=== PATIENT | female | born 1975 ===

== ENCOUNTER 2016-10-22 23:45 | Inpatient (IN) | payer MEDICAID ==
--- NOTE | 2016-10-23 00:14 | ED PDOC ---
HPI: Psych/Substance Abuse Time Seen by Provider: 10/23/16 00:06 Chief Complaint (Nursing): Psychiatric Evaluation Chief Complaint (Provider): pysch eval Additional Complaint(s): 41yo F in ED for eval of psychosis. was sent by [facility] [employer] for bizarre behavior. however pt uncooperative combative and came to ED with 4-point restraints . pt not talking in ED with very bizarre behaviors in ED Past Medical History Reviewed: Historical Data, Nursing Documentation, Vital Signs - Medical History PMH: No Chronic Diseases - Family History Family History: States: No Known Family Hx - Home Medications Home Medications: Ambulatory Orders Medication Instructions Recorded No Known Home Med 10/23/16 - Allergies Allergies/Adverse Reactions: Allergies Allergy/AdvReac Type Severity Reaction Status Date / Time "anesthesia" Allergy RASH Uncoded 10/22/16 23:51 Review of Systems ROS Statement: Except As Marked, All Systems Reviewed And Found Negative Review Of Systems: ROS cannot be obtained secondary to pt's inabilty to answer questions. (refuses to answer) Physical Exam - Reviewed Nursing Documentation Reviewed: Yes Vital Signs Reviewed: Yes - Physical Exam Appears: Positive for: Non-toxic (unkept), No Acute Distress Head Exam: Positive for: ATRAUMATIC, NORMAL INSPECTION, NORMOCEPHALIC Skin: Positive for: Normal Color, Warm, DRY Eye Exam: Positive for: EOMI, Normal appearance, PERRL ENT: Positive for: Normal ENT Inspection Cardiovascular/Chest: Positive for: Regular Rate, Rhythm Respiratory: Positive for: CNT, Normal Breath Sounds Gastrointestinal/Abdominal: Positive for: Normal Exam, Bowel Sounds, Soft Back: Positive for: Normal Inspection Extremity: Positive for: Normal ROM Neurologic/Psych: Positive for: Alert, Mood/Affect (very bizzare affect) - Laboratory Results Result Diagrams: 10/23/16 00:31 10/23/16 00:31 Urine POC: Negative Urine dip results: Negative for: Leukocyte Esterase, Blood, Nitrate, Ketones, Glucose, Bilirubin, Protein - ECG ECG Rhythm: Positive for: Normal QRS - Radiology X-Ray: Interpreted by Me X-Ray Interpretation: No Acute Disease - Progress ED Course And Treament: pt will require [facility] screening . will get cbc/cmp/utox/alcohol/UA/chest xray/ EKG. placed on 1:1 family came to ED -states that family member had similar presentation of of behavior and on CT scan of head discovered tumors. Pt family concerned of similar outcome for pt. therefore CT of head ordered. CT scna results: NAD. Medical Decision Making Medical Decision Making: Pt is medically cleared at this time for [facility] evaluation. ED OBSERVATION Date of observation admission: 10/23/16 Time of observation admission: 04:37 - Observation admission statement Patient is being placed in observation because:: pending [facility] screening for acute psychosis. CTof head: negative. - Goals of Observation Goals of observation are:: [facility] screening and disposition. - Progress Note Progress Note: 10/23/16 04:38 pt doing well, sleeping comfortably. Disposition - Clinical Impression Clinical Impression: Psychosis - Patient ED Disposition Is Patient to be Admitted: Transfer of Care - Disposition Disposition: Transfer of Care Disposition Time: 05:42 Condition: STABLE Patient Signed Over To: Bravo Gu ([facility] screeening)
[2016-10-23 00:31] LABS: BASO # 0.1 K/uL (0.0-0.2); BASO % 1.2 % (0.0-2.0); EOS # 0.5 K/uL (0.0-0.7); HEMOGLOBIN 13.2 g/dL (12.0-16.0); LYMPH # 2.1 K/uL (1.0-4.3); LYMPH % 24.5 % (20.0-40.0); MEAN CELL VOLUME 89.8 fl (81.0-99.0); MEAN CORPUSCULAR HEMOGLOBIN 30.1 pg (27.0-31.0); MEAN CORPUSCULAR HGB CONC 33.5 g/dL (33.0-37.0); MEAN PLATELET VOLUME 9.1 fl (7.2-11.7); MONO # 0.5 K/uL (0.0-0.8); MONO % 5.7 % (0.0-10.0); NEUT # 5.4 K/uL (1.8-7.0); NEUT % 62.6 % (50.0-75.0); RBC 4.38 Mil/uL (3.80-5.20); RED CELL DISTRIBUTION WIDTH 13.3 % (11.5-14.5); WHITE BLOOD COUNT 8.6 K/uL (4.8-10.8)
[2016-10-23 00:40] LABS: ALB/GLOB RATIO 1.6 (1.0-2.1); ALBUMIN 4.2 g/dL (3.5-5.0); ALT/SGPT 32 U/L (9-52); AST/SGOT 14 U/L (14-36); BLOOD UREA NITROGEN 13 mg/dl (7-17); GFR AFRICAN-AMERICAN > 60; GFR NON-AFRICAN AMERICAN > 60
[2016-10-23 01:50] LABS: BARBITURATES, UR NEGATIVE (NEGATIVE); BENZODIAZEPINES, UR NEGATIVE (NEGATIVE); OPIATES, UR NEGATIVE (NEGATIVE); PHENCYCLIDINE, UR NEGATIVE (NEGATIVE)
[2016-10-23 01:53] LABS: SQUAMOUS EPITHIAL 13 /hpf (0-5); URINE BILIRUBIN NEGATIVE (NEGATIVE); URINE BLOOD NEGATIVE (NEGATIVE); URINE CLARITY CLOUDY (Clear); URINE COLOR YELLOW (YELLOW); URINE GLUCOSE (UA) NEG (Normal); URINE LEUKOCYTE ESTERASE NEG Leu/uL (Negative); URINE NITRATE NEGATIVE (NEGATIVE); URINE PROTEIN 30 mg/dL (NEGATIVE); URINE UROBILINOGEN 0.2-1.0 mg/dL (0.2-1.0)
--- NOTE | 2016-10-23 05:51 | ED PDOC ---
- Laboratory Results Result Diagrams: 10/24/16 06:54 10/23/16 00:31 Urine POC: Negative - ECG O2 Sat by Pulse Oximetry: 99 Medical Decision Making Medical Decision Making: Patient s/o from [facility] at [address] [facility] screening. Patient s/o to Dr. Dee at [address] [facility] screening. Scribe Attestation: Documented by Gautam Jones acting as a scribe for Bravo Gu MD. Provider Scribe Attestation: All medical record entries made by the Scribe were at my direction and personally dictated by me. I have reviewed the chart and agree that the record accurately reflects my personal performance of the history, physical exam, medical decision making, and the department course for this patient. I have also personally directed, reviewed, and agree with the discharge instructions and disposition. Disposition - Clinical Impression Clinical Impression: Psychosis - POA Present On Arrival: None - Disposition Disposition: Transfer of Care Disposition Time: 07:00 Condition: STABLE Patient Signed Over To: Pierre Dee Handoff Comments: pending [facility] screening
--- NOTE | 2016-10-23 10:23 | CT ---
PROCEDURE: CT HEAD WITHOUT CONTRAST. HISTORY: Bizarre behaviors, Headaches COMPARISON: None available TECHNIQUE: Axial computed tomography images were obtained through the head/brain without intravenous contrast. Radiation dose: Total exam DLP = 825.51 mGy-cm. This CT exam was performed using one or more of the following dose reduction techniques: Automated exposure control, adjustment of the mA and/or kV according to patient size, and/or use of iterative reconstruction technique. FINDINGS: HEMORRHAGE: No intracranial hemorrhage. BRAIN: No mass effect or edema. No atrophy or chronic microvascular ischemic changes.Please note that MRI with diffusion imaging is more sensitive in the detection of acute ischemic event. VENTRICLES: No hydrocephalus. CALVARIUM: Unremarkable. PARANASAL SINUSES: Unremarkable as visualized. No significant inflammatory changes. MASTOID AIR CELLS: Unremarkable as visualized. No inflammatory changes. OTHER FINDINGS: Partial opacification of the left external auditory canal, likely cerumen. IMPRESSION: No acute intracranial pathology identified. Preliminary impression was provided by [facility].
--- NOTE | 2016-10-23 12:25 | RAD ---
HISTORY: medical eval COMPARISON: None available. TECHNIQUE: Chest PA and lateral FINDINGS: LUNGS: No focal consolidation. Please note that chest x-ray has limited sensitivity for the detection of pulmonary masses. PLEURA: No significant pleural effusion identified. No definite pneumothorax . CARDIOVASCULAR: The cardiomediastinal silhouette appears within normal limits of size. OSSEOUS STRUCTURES: Osseous demineralization. Degenerative changes. VISUALIZED UPPER ABDOMEN: Unremarkable. OTHER FINDINGS: None. IMPRESSION: No focal consolidation, significant pleural effusion, or definite pneumothorax identified.
[2016-10-23] MEDS ORDERED: Magnesium Hydroxide Susp 30 ml UD PO PRN (14:12)
[2016-10-23] MEDS ORDERED: DiphenhydrAMINE 50 mg/ml Inj IM PRN (14:12)
[2016-10-23] MEDS ORDERED: Alum-Mag Hydrox-Simethicone Susp (30 mL) PO PRN (14:12)
--- NOTE | 2016-10-23 18:25 | PCM.PSYCH ---
Initial Psychiatric Evaluation - Initial Psychiatric Evaluation Type of Admission: Voluntary Chief Complaint (in patient's own words): pt [facility] after family called ems related to concerns in changes in pt behavior. in transport in ems pt became agitated and required four point restraints. once in er initially pt was not speaking in er per records, then pt became agitated and got up and began walking around er requiring redirection by staff including security. pt was screened in er [place] by [facility] screener and was found not to meet criteria. initially upon unit pt was somnolent , when spoke with pt required redirection topic was tangential. Patient's Reaction to Hospitalization: pt is verbally agreeable to remain in pt, pt signed in voluntary, was screened by [facility] screener and was found not to meed criteria. History of Present Illness and Precipitating Events: Pbrought into the Er by mobile crisis after being called by her family as per cooler worker . Crisis screener reported a hx off schizophrenia. Current Medications: Active Medications Generic Name Dose Route Start Last Admin Trade Name Freq PRN Reason Stop Dose Admin Acetaminophen 650 mg 10/23/16 14:12 Tylenol 325mg Tab PO Q4 PRN pain Al Hydrox/Mg Hydrox/Simethicone 30 ml 10/23/16 14:12 Maalox Plus 30 Ml PO Q4 PRN Dyspepsia Diphenhydramine HCl 50 mg 10/23/16 14:12 Benadryl IM Q6 PRN Extrapyramidal S/S Unable PO Diphenhydramine HCl 50 mg 10/23/16 14:23 Benadryl PO HS PRN dystonic/EPS Haloperidol 5 mg 10/23/16 14:12 Haldol PO Q4 PRN Agitation Haloperidol Lactate 5 mg 10/23/16 14:12 Haldol IM Q4 PRN Agitation, Unable to Take PO Lorazepam 2 mg 10/23/16 14:12 Ativan IM Q4 PRN Anxiety/Agitation,Unable PO Lorazepam 2 mg 10/23/16 14:21 Ativan PO Q4 PRN Anxiety/agitation Magnesium Hydroxide 30 ml 10/23/16 14:12 Milk Of Magnesia PO HS PRN Constipation Risperidone 0.5 mg 10/23/16 22:00 Risperdal Tab PO DAILY TOAN Past Psychiatric History - Past Psychiatric History Previous Treatment History: Inpatient Prior Professional Help: history of schizophrenia Prior Psychiatric Treatment: inpt opd Pertinent Medical Hx (Current Medical&Sleep Prob, Allergies): Allergies Allergy/AdvReac Type Severity Reaction Status Date / Time "anesthesia" Allergy RASH Uncoded 10/22/16 23:51 No Known Home Med 10/23/16 Review of Systems - Psychiatric Psychiatric: As Per HPI, Difficulty Concentrating Additional comments: paranoia Mental Status Examination - Personal Presentation Personal Presentation: Looks older than stated age - Affect Affect: Flat - Motor Activity Motor Activity: Psychomotor Retardation - Reliability in Providing Information Reliability in Providing Information: Poor, due to cognitve impairment - Speech Speech: Disorganized - Mood Mood: Depressed - Formal Thought Process Formal Thought Process: Paranoia - Cognitive Functions Orientation: Person, Place Sensorium: Drowsy Attention/Concentration: Easily distracted Judgement: Imparied, as evidence by: Other - Risk Risk: Diminished functioning - Strength & Assets Inventory Strength & Assets Inventory: Family support (? history of adherence), Cooperative DSM 5 DX - DSM 5 DSM 5 Diagnosis: schizophrenia paranoid type - Recommended/Plan of Treatment Treatment Recommendations and Plan of Treatment: inpt admission per attending md vital signs and clinical observation per protocol and per clinical status hospitalist consult rispderal 0.5mg po daily first dose to be given tonight at hs team to obtain additional information in am routine labs discharge planning in progress Projected ELOS: 5-7 days Prognosis: guarded Discharge Plan and Discharge Criteria: safety - Smoking Cessation Smoking Cessation Initiated: No Reason for not providing: deferred
[2016-10-24 07:10] LABS: HEMOGLOBIN 12.5 g/dL (12.0-16.0); MEAN CELL VOLUME 89.9 fl (81.0-99.0); MEAN CORPUSCULAR HEMOGLOBIN 30.4 pg (27.0-31.0); MEAN CORPUSCULAR HGB CONC 33.9 g/dL (33.0-37.0); RBC 4.11 Mil/uL (3.80-5.20); RED CELL DISTRIBUTION WIDTH 13.4 % (11.5-14.5)
[2016-10-24 07:32] LABS: T4 8.85 ug/dl (5.5-11.0)
--- NOTE | 2016-10-24 11:27 | PCM.PYCHPN ---
Psychiatric Progress Note - Psychiatric Progress Note Patient seen today, length of contact: discussed with team Patient Chief Complaint: you are supposed to tell me Problems Identified/Issues Discussed: pt paranoid and states her thoughts are very foggy. she states that everyone is jealous of her because she is thin. reports many people are jealous and appear violent and threatening towards here. she has trouble communicating her thoughts clearly and speech is halting and fragmented. she is agreeable to increase her medications. Medication Change: No Medical Record Reviewed: Yes Mental Status Examination - Cognitive Function Orientation: Person, Place Memory: Intact Attention: Poor Concentration: Poor Association: Loose Fund of Knowledge: Poor Decription of patient's judgement and insights: acknowledges need for help - Mood Mood: Depressed, Anxious - Affect Affect: Flat - Speech Speech: Soft, Stammering - Formal Thought Process Formal Thought Process: Delusions, Paranoia, Loosening of associations - Suicidal Ideation Suicidal Ideation: No Plan: "i don't want to hurt myself" - Homicidal Ideation Homicidal Ideation: No Goal/Treatment Plan - Goal/Treatment Plan Need for Continued Stay: Remain at risks for inpatient hospitalization, Discharge may exacerbated symptoms Progress Toward Problem(s) and Goals/Treatment Plan: psychotic disorder unspecified increase risperdal to 1mg hs mtab encourage participation in groups ensure with meals hospitalist following Estimated Date of D/C: 10/31/16
--- NOTE | 2016-10-24 11:44 | CARD ---
APPROVED REPORT EKG Measurement Heart [id number] <Conclusion> Sinus tachycardia Otherwise normal ECG
[2016-10-24] MEDS: Risperidone M tab 1 MG PO SCH (21:36)
--- NOTE | 2016-10-25 11:00 | PCM.PYCHPN ---
Psychiatric Progress Note - Psychiatric Progress Note Patient seen today, length of contact: in treatment team Patient Chief Complaint: i feel a little better Problems Identified/Issues Discussed: pt still very unkempt, thoughts become more bizarre and disorganized as treatment meeting progresses. starts to yell at the rn in meeting and becomes more paranoid- thoughts are disorganized, bizarre and with paranoid themes. she discusses upstairs neighbor beinga sex addict and she is worried he will "start to sell me." pt states she feels a little more "clear" with the medication. denies side effects. allowing for an increase. Medication Change: Yes (increase risperdal) Medical Record Reviewed: Yes Mental Status Examination - Cognitive Function Orientation: Person, Place Memory: Intact Attention: Poor Concentration: Poor Association: Loose Fund of Knowledge: Poor Decription of patient's judgement and insights: acknowledges need for help - Mood Mood: Depressed, Anxious - Affect Affect: Flat - Speech Speech: Loud, Soft Additional comments: tangential, disorganized - Formal Thought Process Formal Thought Process: Delusions, Paranoia, Loosening of associations Psychotic Thoughts and Behaviors: bizarre, paranoid delusions- sexual themes, paranoid themes- escalating into anger. becomes disorganized. - Suicidal Ideation Suicidal Ideation: No - Homicidal Ideation Homicidal Ideation: No Goal/Treatment Plan - Goal/Treatment Plan Need for Continued Stay: Remain at risks for inpatient hospitalization, Discharge may exacerbated symptoms Progress Toward Problem(s) and Goals/Treatment Plan: psychotic disorder unspecified pt unable to care for self and has poor adls and is actively psychotic increase risperdal to 1mg bid encourage participation in groups ensure with meals and rn to consult dietary hospitalist following refer to php program when symptoms stabilize Estimated Date of D/C: 10/31/16
[2016-10-25] MEDS: Risperidone M tab 1 MG PO SCH ×2 (13:09→21:16)
[2016-10-26] MEDS: Risperidone M tab 1 MG PO SCH ×2 (09:29→21:04)
[2016-10-27] MEDS: Risperidone M tab 1 MG PO SCH (08:14)
--- NOTE | 2016-10-27 14:04 | PCM.PYCHPN ---
Psychiatric Progress Note - Psychiatric Progress Note Patient seen today, length of contact: chart reviewed case discussed with team Patient Chief Complaint: pt staff pt somewhat less isolative, family reportedly informed staff some slight improvement pt was admitted to [facility] via er after family called ems related to concerns in changes in pt behavior. in transport in ems pt became agitated and required four point restraints. once in er initially pt was not speaking in er per records, then pt became agitated and got up and began walking around er requiring redirection by staff including security. pt was screened in er [place] by [facility] screener and was found not to meet criteria. initially upon unit pt was somnolent , when spoke with pt required redirection topic was tangential. Problems Identified/Issues Discussed: alteration in cognition alteration in thought process Medical Problems: per chart Diagnostic Results: per psychiatry per medicine per nursing per social work per recreational therapy Medication Change: Yes (increase risperdal) Medical Record Reviewed: Yes Mental Status Examination - Cognitive Function Orientation: Person, Place Memory: Intact Attention: Poor Concentration: Poor Association: Loose Fund of Knowledge: Poor Decription of patient's judgement and insights: impaired - Mood Mood: Depressed, Anxious - Affect Affect: Flat - Speech Speech: Loud, Soft - Formal Thought Process Formal Thought Process: Delusions, Paranoia, Loosening of associations - Suicidal Ideation Suicidal Ideation: No - Homicidal Ideation Homicidal Ideation: No Goal/Treatment Plan - Goal/Treatment Plan Need for Continued Stay: Remain at risks for inpatient hospitalization, Discharge may exacerbated symptoms Progress Toward Problem(s) and Goals/Treatment Plan: inpt adm/milieu therapy increase risperdal to 1mg po am and 2mg po hs (disolve) vital signs and clinical observation per protocol and per status discharge planning in progress Estimated Date of D/C: 10/31/16 - Smoking Cessation Smoking Cessation Initiated: No Reason for not providing: deferred
[2016-10-28] MEDS: Risperidone M tab 1 MG PO SCH (09:23)
--- NOTE | 2016-10-28 13:25 | PCM.PYCHPN ---
Psychiatric Progress Note - Psychiatric Progress Note Patient seen today, length of contact: chart reviewed case discussed with team Patient Chief Complaint: pt slow to respond. no complaints Problems Identified/Issues Discussed: pt isolates in room. pt is taking medications. she appears to be more internally preoccupied. less angry/irritable at this time. psychomotor slowing/ speech is delayed. Medication Change: No ( ) Medical Record Reviewed: Yes Mental Status Examination - Cognitive Function Orientation: Person, Place Memory: Intact Attention: Poor Concentration: Poor Association: Loose Fund of Knowledge: Poor Decription of patient's judgement and insights: poor - Mood Mood: Depressed, Anxious - Affect Affect: Flat - Speech Speech: Soft - Formal Thought Process Formal Thought Process: Delusions, Paranoia, Loosening of associations - Suicidal Ideation Suicidal Ideation: No - Homicidal Ideation Homicidal Ideation: No Goal/Treatment Plan - Goal/Treatment Plan Need for Continued Stay: Remain at risks for inpatient hospitalization, Discharge may exacerbated symptoms Progress Toward Problem(s) and Goals/Treatment Plan: schizophrenia, paranoid pt unable to care for self and has poor adls and is actively psychotic continue 3mg risperdal in divided dose add ativan low dose as pt is with some features of catatonia encourage participation in groups hospitalist following refer to php program when symptoms stabilize Estimated Date of D/C: 10/31/16
[2016-10-29] MEDS: Risperidone M tab 1 MG PO SCH (09:03)
--- NOTE | 2016-10-29 11:23 | PCM.PYCHPN ---
Psychiatric Progress Note - Psychiatric Progress Note Patient seen today, length of contact: discussed with team Patient Chief Complaint: i don't trust those people in my building Problems Identified/Issues Discussed: pt isolates in room. her speech is more fluid and spontaneous today, but she is still internally preoccupied and in her room talking to self. she is paranoid and tangential. she reports no medication side effects. she is asking for written material about her medications. Medication Change: Yes (inc risperdal) Medical Record Reviewed: Yes Mental Status Examination - Cognitive Function Orientation: Person, Place Memory: Intact Attention: Poor Concentration: Poor Association: Loose Fund of Knowledge: Poor Decription of patient's judgement and insights: poor - Mood Mood: Depressed, Anxious - Affect Affect: Flat - Speech Speech: Soft - Formal Thought Process Formal Thought Process: Delusions, Paranoia, Loosening of associations - Suicidal Ideation Suicidal Ideation: No - Homicidal Ideation Homicidal Ideation: No Goal/Treatment Plan - Goal/Treatment Plan Need for Continued Stay: Remain at risks for inpatient hospitalization, Discharge may exacerbated symptoms Progress Toward Problem(s) and Goals/Treatment Plan: schizophrenia, paranoid pt unable to care for self and has poor adls and is actively psychotic increase risperdal to 1mg in am and 3mg hs continue ativan low dose encourage participation in groups hospitalist following refer to php program when symptoms stabilize Estimated Date of D/C: 10/31/16
[2016-10-30] MEDS: Risperidone M tab 1 MG PO SCH (10:05)
--- NOTE | 2016-10-30 13:22 | PCM.PYCHPN ---
Psychiatric Progress Note - Psychiatric Progress Note Patient seen today, length of contact: discussed with team Patient Chief Complaint: i think things are improving Problems Identified/Issues Discussed: pt still isolating, but seems more participatory and leaving room without prompting, taking meds at proper times. apparently had good visit with family last night. denies medication side effects. Medication Change: No ( ) Medical Record Reviewed: Yes Mental Status Examination - Cognitive Function Orientation: Person, Place Memory: Intact Attention: Poor Concentration: WNL Association: Loose Fund of Knowledge: Poor Decription of patient's judgement and insights: improving insight - Mood Mood: Depressed, Anxious - Affect Affect: Flat - Speech Speech: Soft - Formal Thought Process Formal Thought Process: Delusions, Paranoia, Loosening of associations Psychotic Thoughts and Behaviors: paranoid, internally preoccupied, disorganized thoughts - Suicidal Ideation Suicidal Ideation: No - Homicidal Ideation Homicidal Ideation: No Goal/Treatment Plan - Goal/Treatment Plan Need for Continued Stay: Remain at risks for inpatient hospitalization, Discharge may exacerbated symptoms Progress Toward Problem(s) and Goals/Treatment Plan: schizophrenia, paranoid still actively psychotic, but improving continue current dose of risperdal continue ativan low dose encourage participation in groups hospitalist following refer to php program when symptoms stabilize Estimated Date of D/C: 10/31/16
[2016-10-31] MEDS: Risperidone M tab 1 MG PO SCH (10:16)
--- NOTE | 2016-10-31 10:58 | PCM.PYCHPN ---
Psychiatric Progress Note - Psychiatric Progress Note Patient seen today, length of contact: discussed with team Patient Chief Complaint: i feel tired Problems Identified/Issues Discussed: pt less isolative. she is less paranoid, but she is still tangential with thought disorganization. some improvements in adls. she only reports feeling tired from the medications and denies any other side effects. Medication Change: No ( ) Medical Record Reviewed: Yes Mental Status Examination - Cognitive Function Orientation: Person, Place Memory: Intact Attention: WNL Concentration: WNL Association: Loose Fund of Knowledge: WNL Decription of patient's judgement and insights: improving insight - Mood Mood: Anxious - Affect Affect: Constricted (improved range of affect) - Speech Speech: Soft Additional comments: does not answer questions directly, tangential - Formal Thought Process Formal Thought Process: Delusions, Loosening of associations Psychotic Thoughts and Behaviors: paranoid, internally preoccupied, disorganized thoughts - Suicidal Ideation Suicidal Ideation: No - Homicidal Ideation Homicidal Ideation: No Goal/Treatment Plan - Goal/Treatment Plan Need for Continued Stay: Remain at risks for inpatient hospitalization, Discharge may exacerbated symptoms Progress Toward Problem(s) and Goals/Treatment Plan: schizophrenia, paranoid still actively psychotic, but improving continue current dose of risperdal- may increase over the weekend and t/c starting risperdal consta on the unit prior to discharge continue ativan low dose encourage participation in groups hospitalist following refer to [facility] program when symptoms stabilize Estimated Date of D/C: 11/05/16
--- NOTE | 2016-10-31 15:38 | CP.PCM.CON ---
<Yaniv Arteaga - Last Filed: 10/31/16 15:51> History of Present Illness - History of Present Illness History of Present Illness: 41 y/o female with a PMHx of schizophrenia who was brought to the hospital restrained by EMS after her family reported several days of "weird and bizarre" behaviors associated with insomnia and aggitation. Pt denies PMHx. Reports she was having difficulty sleeping for the past week and denies auditory/visual hallucincations, and homocidal/suicidal ideation. Pt reports she didnt feel any problems with her health before her sleeping troubles began. Denies fever/chills , headaches, changes in vision, CP/SOB/Palpitations, N/V/D/C, urinary symptoms, numbness/tingling. PMHx: none as per pt MEDs: antipsychotic meds only PsurgHx: none POBhx: none ALL: NKDA SocialHx: lives at home with family, works answering telephones. Denies ETOH, tobacco, and illicit drug use. FamilyHx: noncontributory ROS: 12 points reviewed found to be negative GEN: AAOx3, disheveled appearance, NAD HEET:Atraumatic, EMOI, ROSALINE, sclera nonicteric, conjunctiva clear Neck: supple, FROM, No cartoid bruit, JVD, lymphadenopathy CVS: RRR, S1S2+, no MRG Lungs: CTA b/l, A&P, no WRR Abd: +BS, soft, NT/ND, no guarding/rigidity EXT: no edema, pulses 2+ throughout NEURO: CN II-XII grossly intact Psych: calm, cooperative with exam, flat affect, tends to drift off during hx taking A: 41 y/o female with PMHx of schizophrenia admitted for evaluation and treatment of schziophrenia Plan: 1) Schizophrenia -as per psych team 2) Preventive HbA1c: 4.9 Lipid Panel: wnl TSH: wnl -will continue to follow as pt is inhouse. Past Patient History - Past Social History Smoking Status: Unknown If Ever Smoked - CARDIAC Hx Cardiac Disorders: No - PULMONARY Hx Respiratory Disorders: No - NEUROLOGICAL Hx Neurological Disorder: No - HEENT Hx HEENT Problems: No - RENAL Hx Chronic Kidney Disease: No - ENDOCRINE/METABOLIC Hx Endocrine Disorders: No - HEMATOLOGICAL/ONCOLOGICAL Hx Blood Disorders: No - INTEGUMENTARY Hx Dermatological Problems: No - MUSCULOSKELETAL/RHEUMATOLOGICAL Hx Musculoskeletal Disorders: No - GENITOURINARY/GYNECOLOGICAL Hx Genitourinary Disorders: No - PSYCHIATRIC Hx Psychophysiologic Disorder: Yes (BIPOLAR,SCHIZO) Meds Allergies/Adverse Reactions: Allergies Allergy/AdvReac Type Severity Reaction Status Date / Time "anesthesia" Allergy RASH Uncoded 10/22/16 23:51 - Medications Medications: Current Medications Acetaminophen (Tylenol 325mg Tab) 650 mg PO Q4 PRN PRN Reason: pain Al Hydrox/Mg Hydrox/Simethicone (Maalox Plus 30 Ml) 30 ml PO Q4 PRN PRN Reason: Dyspepsia Diphenhydramine HCl (Benadryl) 50 mg IM Q6 PRN PRN Reason: Extrapyramidal S/S Unable PO Diphenhydramine HCl (Benadryl) 50 mg PO HS PRN PRN Reason: dystonic/EPS Haloperidol (Haldol) 5 mg PO Q4 PRN PRN Reason: Agitation Haloperidol Lactate (Haldol) 5 mg IM Q4 PRN PRN Reason: Agitation, Unable to Take PO Lorazepam (Ativan) 2 mg IM Q4 PRN PRN Reason: Anxiety/Agitation,Unable PO Lorazepam (Ativan) 2 mg PO Q4 PRN PRN Reason: Anxiety/agitation Lorazepam (Ativan) 0.5 mg PO BID ON LICENSE OF [facility] Last Admin: 10/31/16 10:16 Dose: 0.5 mg Magnesium Hydroxide (Milk Of Magnesia) 30 ml PO HS PRN PRN Reason: Constipation Risperidone (Risperdal M-Tab) 1 mg PO DAILY ON LICENSE OF [facility] Last Admin: 10/31/16 10:16 Dose: 1 mg Risperidone (Risperdal Tab) 3 mg PO HS ON LICENSE OF [facility] Last Admin: 10/30/16 21:10 Dose: 3 mg Results - Vital Signs Recent Vital Signs: Last Vital Signs Temp 97.7 F 10/30/16 17:00 Pulse 100 H 10/30/16 17:00 Resp 18 10/30/16 17:00 BP 91/55 L 10/30/16 17:00 Pulse Ox 99 10/24/16 14:46 - Labs Result Diagrams: 10/24/16 06:54 10/23/16 00:31 <Adrián Morillo L - Last Filed: 10/31/16 23:03> Meds - Medications Medications: Current Medications Acetaminophen (Tylenol 325mg Tab) 650 mg PO Q4 PRN PRN Reason: pain Al Hydrox/Mg Hydrox/Simethicone (Maalox Plus 30 Ml) 30 ml PO Q4 PRN PRN Reason: Dyspepsia Diphenhydramine HCl (Benadryl) 50 mg IM Q6 PRN PRN Reason: Extrapyramidal S/S Unable PO Diphenhydramine HCl (Benadryl) 50 mg PO HS PRN PRN Reason: dystonic/EPS Haloperidol (Haldol) 5 mg PO Q4 PRN PRN Reason: Agitation Haloperidol Lactate (Haldol) 5 mg IM Q4 PRN PRN Reason: Agitation, Unable to Take PO Lorazepam (Ativan) 2 mg IM Q4 PRN PRN Reason: Anxiety/Agitation,Unable PO Lorazepam (Ativan) 2 mg PO Q4 PRN PRN Reason: Anxiety/agitation Lorazepam (Ativan) 0.5 mg PO BID ON LICENSE OF [facility] Last Admin: 10/31/16 18:42 Dose: 0.5 mg Magnesium Hydroxide (Milk Of Magnesia) 30 ml PO HS PRN PRN Reason: Constipation Risperidone (Risperdal M-Tab) 1 mg PO DAILY ON LICENSE OF [facility] Last Admin: 10/31/16 10:16 Dose: 1 mg Risperidone (Risperdal Tab) 3 mg PO HS ON LICENSE OF [facility] Last Admin: 10/31/16 21:08 Dose: 3 mg Results - Vital Signs Recent Vital Signs: Last Vital Signs Temp 98.4 F 10/31/16 16:16 Pulse 98 H 10/31/16 16:16 Resp 18 10/31/16 16:16 BP 95/57 L 10/31/16 16:16 Pulse Ox 99 10/24/16 14:46 - Labs Result Diagrams: 10/24/16 06:54 10/23/16 00:31 Assessment & Plan - Assessment and Plan (Free Text) Plan: I was present during evaluation and discussed with Dr Arteaga re plans of care. Adrián Morillo M.D.
[2016-11-01] MEDS: Risperidone M tab 1 MG PO SCH (09:29)
--- NOTE | 2016-11-01 12:16 | PCM.PYCHPN ---
Psychiatric Progress Note - Psychiatric Progress Note Patient seen today, length of contact: in treatment team Patient Chief Complaint: i feel better Problems Identified/Issues Discussed: pt with more organized thoughts. she was seen in team. we discussed option switching to invega and starting invega sustenna. pt is agreeable to this plan. she is more logical in her thoughts. she denies any side effects with risperdal outside of some mild sedation. Medication Change: No ( ) Medical Record Reviewed: Yes Mental Status Examination - Cognitive Function Orientation: Person, Place Memory: Intact Attention: WNL Concentration: WNL Association: Loose Fund of Knowledge: WNL Decription of patient's judgement and insights: improving insight - Mood Mood: Anxious - Affect Affect: Constricted (improved range of affect) - Speech Speech: Soft - Formal Thought Process Formal Thought Process: Delusions, Loosening of associations Psychotic Thoughts and Behaviors: less paranoid. thoughts more organized - Suicidal Ideation Suicidal Ideation: No - Homicidal Ideation Homicidal Ideation: No Goal/Treatment Plan - Goal/Treatment Plan Need for Continued Stay: Remain at risks for inpatient hospitalization, Discharge may exacerbated symptoms Progress Toward Problem(s) and Goals/Treatment Plan: schizophrenia, paranoid psychosis improving pt agrees to switch to invega with plan to use invega sustenna discontinue ativan encourage participation in groups hospitalist following refer to [facility] program when symptoms stabilize Estimated Date of D/C: 11/05/16
[2016-11-01] MEDS ORDERED: Paliperidone 6 MG ER TAB PO SCH (22:00)
--- NOTE | 2016-11-02 09:47 | PCM.PYCHPN ---
Psychiatric Progress Note - Psychiatric Progress Note Patient seen today, length of contact: discussed with team Patient Chief Complaint: i didn't sleep Problems Identified/Issues Discussed: pt tired now. did not sleep last night. she is still more goal directed in her thoughts. she is ok with switch of invega to am dosing. accepting of a hs med for sleep and still expresses agreement with injectable meds. discussed treatment/prognosis with pt's sister angelo yesterday on phone. Medication Change: Yes ( ) Medical Record Reviewed: Yes Mental Status Examination - Cognitive Function Orientation: Person, Place Memory: Intact Attention: WNL Concentration: WNL Association: Loose Fund of Knowledge: WNL Decription of patient's judgement and insights: improving insight - Mood Mood: Anxious - Affect Affect: Constricted (improved range of affect) - Speech Speech: Soft - Formal Thought Process Formal Thought Process: Delusions, Loosening of associations Psychotic Thoughts and Behaviors: less paranoid. thoughts more organized - Suicidal Ideation Suicidal Ideation: No - Homicidal Ideation Homicidal Ideation: No Goal/Treatment Plan - Goal/Treatment Plan Need for Continued Stay: Remain at risks for inpatient hospitalization, Discharge may exacerbated symptoms Progress Toward Problem(s) and Goals/Treatment Plan: schizophrenia, paranoid psychosis improving invega 6mg daily, start doxepin for sleep discontinue ativan encourage participation in groups hospitalist following refer to [facility] program when symptoms stabilize Estimated Date of D/C: 11/05/16
[2016-11-02] MEDS: Paliperidone 6 MG ER TAB PO SCH (16:35)
[2016-11-03] MEDS: Paliperidone 6 MG ER TAB PO SCH (11:27)
--- NOTE | 2016-11-03 11:34 | PCM.PYCHPN ---
Psychiatric Progress Note - Psychiatric Progress Note Patient seen today, length of contact: discussed with team Patient Chief Complaint: i think i slept better Problems Identified/Issues Discussed: pt a bit more disorganized today. she is denying side effects with the invega. will allow increase. isolates in room. Medication Change: Yes (increase invega) Medical Record Reviewed: Yes Mental Status Examination - Cognitive Function Orientation: Person, Place Memory: Intact Attention: WNL Concentration: WNL Association: Loose Fund of Knowledge: WNL Decription of patient's judgement and insights: fair - Mood Mood: Anxious - Affect Affect: Constricted (improved range of affect) - Speech Speech: Soft - Formal Thought Process Formal Thought Process: Delusions, Loosening of associations Psychotic Thoughts and Behaviors: less paranoid. thoughts more organized - Suicidal Ideation Suicidal Ideation: No - Homicidal Ideation Homicidal Ideation: No Goal/Treatment Plan - Goal/Treatment Plan Need for Continued Stay: Remain at risks for inpatient hospitalization, Discharge may exacerbated symptoms Progress Toward Problem(s) and Goals/Treatment Plan: schizophrenia, paranoid psychosis improving increase invega 9mg daily, continue doxepin for sleep encourage participation in groups hospitalist following refer to [facility] when symptoms stabilize Estimated Date of D/C: 11/05/16
[2016-11-03] MEDS: Paliperidone 3 MG ER TAB PO SCH (17:14)
[2016-11-04] MEDS ORDERED: Paliperidone 6 MG ER TAB PO SCH (09:00)
[2016-11-04] MEDS: Paliperidone 3 MG ER TAB PO SCH (09:29)
--- NOTE | 2016-11-04 13:24 | PCM.PYCHPN ---
Psychiatric Progress Note - Psychiatric Progress Note Patient seen today, length of contact: discussed with team Patient Chief Complaint: i feel tired Problems Identified/Issues Discussed: pt isolating in room. states her thoughts are more clear. she is accepting injection of sustenna tomorrow. she is asking for more information about the [facility]. pt's sister is requesting a family meeting prior to pt's discharge. Medication Change: Yes (invega sustenna tomorrow) Medical Record Reviewed: Yes Mental Status Examination - Cognitive Function Orientation: Person, Place Memory: Intact Attention: WNL Concentration: WNL Association: Loose Fund of Knowledge: WNL Decription of patient's judgement and insights: fair - Mood Mood: Anxious - Affect Affect: Constricted (improved range of affect) - Speech Speech: Soft - Formal Thought Process Formal Thought Process: Delusions, Loosening of associations Psychotic Thoughts and Behaviors: less paranoid. thoughts more organized - Suicidal Ideation Suicidal Ideation: No - Homicidal Ideation Homicidal Ideation: No Goal/Treatment Plan - Goal/Treatment Plan Need for Continued Stay: Remain at risks for inpatient hospitalization, Discharge may exacerbated symptoms Progress Toward Problem(s) and Goals/Treatment Plan: schizophrenia, paranoid psychosis improving dc oral invega and start sustenna tomorrow encourage participation in groups hospitalist following refer to [facility] program when symptoms stabilize Estimated Date of D/C: 11/11/16
[2016-11-05] MEDS ORDERED: Paliperidone Palmitate 234 MG/1.5 ML SYR IM ONE (10:00)
[2016-11-05] MEDS: Risperidone M tab 1 MG PO SCH ×2 (11:00→21:13)
--- NOTE | 2016-11-05 11:31 | PCM.PYCHPN ---
Psychiatric Progress Note - Psychiatric Progress Note Patient seen today, length of contact: discussed with team Patient Chief Complaint: i am not a child Problems Identified/Issues Discussed: pt not doing as well with invega. she is more internally preoccupied, illogical , speaking with an accent. no side effects. Medication Change: Yes (dc invega and start risperdal) Medical Record Reviewed: Yes Mental Status Examination - Cognitive Function Orientation: Person, Place Memory: Intact Attention: WNL Concentration: WNL Association: Loose Fund of Knowledge: WNL Decription of patient's judgement and insights: fair - Mood Mood: Anxious - Affect Affect: Constricted (improved range of affect) - Speech Speech: Soft - Formal Thought Process Formal Thought Process: Delusions, Loosening of associations Psychotic Thoughts and Behaviors: paranoid. thoughts disorganized, illogical - Suicidal Ideation Suicidal Ideation: No - Homicidal Ideation Homicidal Ideation: No Goal/Treatment Plan - Goal/Treatment Plan Need for Continued Stay: Remain at risks for inpatient hospitalization, Discharge may exacerbated symptoms Progress Toward Problem(s) and Goals/Treatment Plan: schizophrenia, paranoid will dc invega and restart risperdal as it was more effective can consider consta prior to discharge encourage participation in groups hospitalist following refer to [facility] program when symptoms stabilize Estimated Date of D/C: 11/11/16
[2016-11-06] MEDS: Risperidone M tab 1 MG PO SCH ×2 (11:23→21:10)
--- NOTE | 2016-11-06 13:33 | PCM.PYCHPN ---
Psychiatric Progress Note - Psychiatric Progress Note Patient seen today, length of contact: discussed with team Patient Chief Complaint: i am here Problems Identified/Issues Discussed: pt denies med side effects. attempt to attend groups today. remains disorganized. no evidence of dystonia today. started cogentin today. Medication Change: Yes ( added cogentin- rn described symnptoms of dystonia last night) Medical Record Reviewed: Yes Mental Status Examination - Cognitive Function Orientation: Person, Place Memory: Intact Attention: WNL Concentration: WNL Association: Loose Fund of Knowledge: WNL Decription of patient's judgement and insights: fair - Mood Mood: Anxious - Affect Affect: Constricted (improved range of affect) - Speech Speech: Soft - Formal Thought Process Formal Thought Process: Delusions, Loosening of associations Psychotic Thoughts and Behaviors: paranoid. thoughts disorganized, illogical - Suicidal Ideation Suicidal Ideation: No - Homicidal Ideation Homicidal Ideation: No Goal/Treatment Plan - Goal/Treatment Plan Need for Continued Stay: Remain at risks for inpatient hospitalization, Discharge may exacerbated symptoms Progress Toward Problem(s) and Goals/Treatment Plan: schizophrenia, paranoid continue risperdal and max dose and cogentin encourage participation in groups hospitalist following refer to [facility] program when symptoms stabilize Estimated Date of D/C: 11/11/16
--- NOTE | 2016-11-07 10:25 | PCM.PYCHPN ---
Psychiatric Progress Note - Psychiatric Progress Note Patient seen today, length of contact: discussed with team Patient Chief Complaint: i want to meet with my family about this Problems Identified/Issues Discussed: pt denies med side effects. she is eating her meals, she reports fair sleep. she states she does not believe she has a psychotic disorder, but continues to take her risperdal despite repeatedly being told it is to treat psychosis/ schizophrenia. pt is asking for family meeting. she is not speaking with her eastern accent to day. she is irritable, but thoughts are more organized today than when she was taking invega. Medication Change: No ( ) Medical Record Reviewed: Yes Mental Status Examination - Cognitive Function Orientation: Person, Place Memory: Intact Attention: WNL Concentration: WNL Association: Loose Fund of Knowledge: WNL Decription of patient's judgement and insights: fair - Mood Mood: Anxious, Other (irritable) - Affect Affect: Constricted (improved range of affect) - Speech Speech: Appropriate - Formal Thought Process Formal Thought Process: Delusions, Loosening of associations Psychotic Thoughts and Behaviors: paranoid. thoughts illogical. ambivalence - Suicidal Ideation Suicidal Ideation: No - Homicidal Ideation Homicidal Ideation: No Goal/Treatment Plan - Goal/Treatment Plan Need for Continued Stay: Remain at risks for inpatient hospitalization, Discharge may exacerbated symptoms Progress Toward Problem(s) and Goals/Treatment Plan: schizophrenia, paranoid continue risperdal at max dose and cogentin encourage participation in groups family meeting risperdal michelle next week if continues to improve hospitalist following refer to [facility] program when symptoms stabilize Estimated Date of D/C: 11/11/16
[2016-11-07] MEDS: Risperidone M tab 1 MG PO SCH ×2 (10:31→21:24)
[2016-11-08] MEDS: Risperidone M tab 1 MG PO SCH (12:47)
--- NOTE | 2016-11-08 14:16 | PCM.PYCHPN ---
Psychiatric Progress Note - Psychiatric Progress Note Patient seen today, length of contact: in treatment team Patient Chief Complaint: i am tired Problems Identified/Issues Discussed: pt c/o feeling tired. states meds make her thoughts more clear, but remains disorganized and tangential. spoke to sister who saw pt as "taking a step back this week." pt reports feeling a little "shaky" Medication Change: No ( ) Medical Record Reviewed: Yes Mental Status Examination - Cognitive Function Orientation: Person, Place Memory: Intact Attention: WNL Concentration: WNL Association: Loose Fund of Knowledge: WNL Decription of patient's judgement and insights: fair - Mood Mood: Anxious, Other (irritable) - Affect Affect: Constricted (improved range of affect) - Speech Speech: Appropriate - Formal Thought Process Formal Thought Process: Delusions, Loosening of associations, Circumstantial ( tangential) Psychotic Thoughts and Behaviors: paranoid. thoughts illogical. ambivalence - Suicidal Ideation Suicidal Ideation: No - Homicidal Ideation Homicidal Ideation: No Goal/Treatment Plan - Goal/Treatment Plan Need for Continued Stay: Remain at risks for inpatient hospitalization, Discharge may exacerbated symptoms Progress Toward Problem(s) and Goals/Treatment Plan: schizophrenia, paranoid continue risperdal- switch to 4mg hs, add cogentin encourage participation in groups family meeting risperdal michelle next week if continues to improve hospitalist following refer to [facility] program when symptoms stabilize Estimated Date of D/C: 11/15/16
[2016-11-08] MEDS: Risperidone M TAB 2 MG PO SCH (21:22)
--- NOTE | 2016-11-09 09:18 | PCM.PYCHPN ---
Psychiatric Progress Note - Psychiatric Progress Note Patient seen today, length of contact: Patient evaluated, case discussed with team, chart reviewed Patient Chief Complaint: "I don't know how to answer your questions." Problems Identified/Issues Discussed: Patient was disorganized on interview. She denied AH/VH, but did express some paranoia and would not answer if she feels safe in the hospital. He believes she is improving but has difficulty explaining what that means. Medication Change: No ( ) Medical Record Reviewed: Yes Mental Status Examination - Cognitive Function Orientation: Person, Place Memory: Intact Attention: WNL Concentration: WNL Association: Loose Fund of Knowledge: WNL Decription of patient's judgement and insights: Poor I/J - Mood Mood: Anxious - Affect Affect: Constricted (improved range of affect) - Speech Speech: Appropriate - Formal Thought Process Formal Thought Process: Delusions, Loosening of associations, Circumstantial ( tangential) Psychotic Thoughts and Behaviors: Paranoia, disorganized speech; Denies AH/VH - Suicidal Ideation Suicidal Ideation: No - Homicidal Ideation Homicidal Ideation: No Goal/Treatment Plan - Goal/Treatment Plan Need for Continued Stay: Remain at risks for inpatient hospitalization, Discharge may exacerbated symptoms Progress Toward Problem(s) and Goals/Treatment Plan: Schizophrenia, paranoid -Continue Risperdal 4mg hs, Cogentin 1 mg PO HS, Doxepin 10 mg PO HS -Encourage participation in groups -Individual and group therapy -Disposition planning-refer to [facility] program when symptoms stabilize Estimated Date of D/C: 11/15/16
[2016-11-09] MEDS: Risperidone M TAB 2 MG PO SCH (21:37)
--- NOTE | 2016-11-10 09:59 | PCM.PYCHPN ---
Psychiatric Progress Note - Psychiatric Progress Note Patient seen today, length of contact: Patient evaluated, case discussed with team, chart reviewed Patient Chief Complaint: "I'm learning how to take better care of my skin" Problems Identified/Issues Discussed: Patient was disorganized on interview. She seems to have poor insight into her level of disorganization. She denied AH/VH. He believes she is improving but has difficulty explaining what that means. Medication Change: No Medical Record Reviewed: Yes Mental Status Examination - Cognitive Function Orientation: Person, Place Memory: Intact Attention: WNL Concentration: WNL Association: Loose Fund of Knowledge: WNL Decription of patient's judgement and insights: Poor I/J - Mood Mood: Anxious - Affect Affect: Constricted (improved range of affect) - Speech Speech: Appropriate - Formal Thought Process Formal Thought Process: Loosening of associations, Circumstantial (tangential) Psychotic Thoughts and Behaviors: Disorganized speech; Denies AH/VH - Suicidal Ideation Suicidal Ideation: No - Homicidal Ideation Homicidal Ideation: No Goal/Treatment Plan - Goal/Treatment Plan Need for Continued Stay: Remain at risks for inpatient hospitalization, Discharge may exacerbated symptoms Progress Toward Problem(s) and Goals/Treatment Plan: Schizophrenia, paranoid; Patient continues to be psychotic/acutely disorganized. -Continue Risperdal 4mg hs, Cogentin 1 mg PO HS, Doxepin 10 mg PO HS -Encourage participation in groups -Individual and group therapy -Disposition planning-refer to [facility] program when symptoms stabilize Estimated Date of D/C: 11/15/16
[2016-11-10] MEDS: Risperidone M TAB 2 MG PO SCH (21:18)
--- NOTE | 2016-11-11 12:14 | PCM.PYCHPN ---
Psychiatric Progress Note - Psychiatric Progress Note Patient seen today, length of contact: discussed with team Patient Chief Complaint: i don't want to talk Problems Identified/Issues Discussed: pt sitting in bed, talking to self. staring at the ceiling. her thoughts are disorganized when she speaks. she is denying medication side effects. Medication Change: Yes (dc risperdal and start abilify) Medical Record Reviewed: Yes Mental Status Examination - Cognitive Function Orientation: Person, Place Memory: Intact Attention: WNL Concentration: WNL Association: Loose Fund of Knowledge: WNL Decription of patient's judgement and insights: fair - Mood Mood: Anxious - Affect Affect: Flat - Speech Speech: Soft - Formal Thought Process Formal Thought Process: Paranoia, Loosening of associations, Circumstantial ( tangential), Other (talking to self, staring) - Suicidal Ideation Suicidal Ideation: No - Homicidal Ideation Homicidal Ideation: No Goal/Treatment Plan - Goal/Treatment Plan Need for Continued Stay: Remain at risks for inpatient hospitalization, Discharge may exacerbated symptoms Progress Toward Problem(s) and Goals/Treatment Plan: schizophrenia, paranoid dc risperdal and start abilify- discussed r/b/se with pt encourage participation in groups family meeting hospitalist following refer to [facility] program when symptoms stabilize Estimated Date of D/C: 11/15/16
[2016-11-11 17:27] VITALS: BMI 19.2
--- NOTE | 2016-11-12 10:35 | PCM.PYCHPN ---
Psychiatric Progress Note - Psychiatric Progress Note Patient seen today, length of contact: discussed with team Patient Chief Complaint: i have a cold Problems Identified/Issues Discussed: pt internally preoccupied and with brief answers. states abilify "might make me tired" c/o having a some nasal congestion. she is coming out of room to visit family and eating meals, but otherwise keeps to self in her room. Medication Change: No ( no changes today) Medical Record Reviewed: Yes Mental Status Examination - Cognitive Function Orientation: Person, Place Memory: Intact Attention: WNL Concentration: WNL Association: Loose Fund of Knowledge: WNL Decription of patient's judgement and insights: fair - Mood Mood: Anxious - Affect Affect: Flat - Speech Speech: Soft - Formal Thought Process Formal Thought Process: Paranoia, Loosening of associations, Circumstantial ( tangential), Other (talking to self, staring) - Suicidal Ideation Suicidal Ideation: No - Homicidal Ideation Homicidal Ideation: No Goal/Treatment Plan - Goal/Treatment Plan Need for Continued Stay: Remain at risks for inpatient hospitalization, Discharge may exacerbated symptoms Progress Toward Problem(s) and Goals/Treatment Plan: schizophrenia, paranoid will continue abilify today and increase to 10mg tomrrow encourage participation in groups family meeting hospitalist following refer to [facility] program when symptoms stabilize Estimated Date of D/C: 11/15/16
--- NOTE | 2016-11-13 09:59 | PCM.PYCHPN ---
Psychiatric Progress Note - Psychiatric Progress Note Patient seen today, length of contact: discussed with team Patient Chief Complaint: i guess it's okay Problems Identified/Issues Discussed: pt comes out of room at times to eat and sits in day room but with little peer interaction. refused family visit last night. she is not endorsing any side effects from the abilify. she is paranoid and very guarded when speaking to this [employer] under[employer]. Medication Change: Yes (abilify inc. to 10mg today and 15 tomorrow) Medical Record Reviewed: Yes Mental Status Examination - Cognitive Function Orientation: Person, Place Memory: Intact Attention: WNL Concentration: WNL Association: Loose Fund of Knowledge: WNL Decription of patient's judgement and insights: fair - Mood Mood: Anxious - Affect Affect: Flat - Speech Speech: Soft - Formal Thought Process Formal Thought Process: Paranoia, Loosening of associations, Circumstantial ( tangential), Other (talking to self, staring) - Suicidal Ideation Suicidal Ideation: No - Homicidal Ideation Homicidal Ideation: No Goal/Treatment Plan - Goal/Treatment Plan Need for Continued Stay: Remain at risks for inpatient hospitalization, Discharge may exacerbated symptoms Progress Toward Problem(s) and Goals/Treatment Plan: schizophrenia, paranoid will continue abilify today and increase to 10mg today and 15mg tomorrow family meeting hospitalist following refer to [facility] when symptoms stabilize Estimated Date of D/C: 11/15/16
--- NOTE | 2016-11-14 10:55 | PCM.PYCHPN ---
Psychiatric Progress Note - Psychiatric Progress Note Patient seen today, length of contact: discussed with team Patient Chief Complaint: i'm tired Problems Identified/Issues Discussed: pt remains grossly disorganized in her thoughts, she has little insight into why she is in the hospital. she has not wanted to see family, indicated she will not take medications after discharge. Medication Change: No (increase abilify to 15mg, start ativan) Medical Record Reviewed: Yes Mental Status Examination - Cognitive Function Orientation: Person, Place Memory: Intact Attention: WNL Concentration: WNL Association: Loose Fund of Knowledge: WNL Decription of patient's judgement and insights: fair - Mood Mood: Anxious - Affect Affect: Flat - Speech Speech: Soft - Formal Thought Process Formal Thought Process: Paranoia, Loosening of associations, Circumstantial ( tangential), Other (talking to self, staring) - Suicidal Ideation Suicidal Ideation: No - Homicidal Ideation Homicidal Ideation: No Goal/Treatment Plan - Goal/Treatment Plan Need for Continued Stay: Remain at risks for inpatient hospitalization, Discharge may exacerbated symptoms Progress Toward Problem(s) and Goals/Treatment Plan: schizophrenia, paranoid will continue abilify increase to 15mg add ativan family meeting hospitalist following refer to [facility] when symptoms stabilize Estimated Date of D/C: 11/15/16
--- NOTE | 2016-11-15 14:42 | PCM.PYCHPN ---
Psychiatric Progress Note - Psychiatric Progress Note Patient seen today, length of contact: discussed with team Patient Chief Complaint: ii have a tooth ache Problems Identified/Issues Discussed: pt still internally preoccupied. no c/o medication side effects. less irritable today. states she is sleeping well. family left message stating she seems a little improved. Medication Change: No ( ) Medical Record Reviewed: Yes Mental Status Examination - Cognitive Function Orientation: Person, Place Memory: Intact Attention: WNL Concentration: WNL Association: Loose Fund of Knowledge: WNL Decription of patient's judgement and insights: fair - Mood Mood: Anxious - Affect Affect: Flat - Speech Speech: Soft - Formal Thought Process Formal Thought Process: Paranoia, Loosening of associations, Circumstantial ( tangential), Other (talking to self, staring) - Suicidal Ideation Suicidal Ideation: No - Homicidal Ideation Homicidal Ideation: No Goal/Treatment Plan - Goal/Treatment Plan Need for Continued Stay: Remain at risks for inpatient hospitalization, Discharge may exacerbated symptoms Progress Toward Problem(s) and Goals/Treatment Plan: schizophrenia, paranoid will continue abilify continue 15mg continue ativan family meeting rn aware of pt's c/o toothache and to consult the medical doctor- possible antibiotic hospitalist following refer to [facility] when symptoms stabilize Estimated Date of D/C: 11/15/16
[2016-11-16] MEDS: Benzocaine/Menthol (Cepacol) Lozenge PO PRN (17:56)
--- NOTE | 2016-11-16 21:12 | PCM.PYCHPN ---
Psychiatric Progress Note - Psychiatric Progress Note Patient seen today, length of contact: discussed with team Patient Chief Complaint: pt staff pt somewhat less isolative, family reportedly informed staff some slight improvement pt was admitted to [facility] via er after family called [facility] related to concerns in changes in pt behavior. in transport in [facility] pt became agitated and required four point restraints. once in er initially pt was not speaking in er per records, then pt became agitated and got up and began walking around er requiring redirection by staff including security. pt was screened in er [place] [facility] screener and was found not to meet criteria. initially upon unit pt was somnolent , when spoke with pt required redirection topic was tangential. Problems Identified/Issues Discussed: alteration in cognition alteration in thought process Medical Problems: per chart Diagnostic Results: per psychiatry per medicine per nursing per social work per recreational therapy DSM 5 Symptoms Update: alteration in cognition Medication Change: No ( ) Medical Record Reviewed: Yes Mental Status Examination - Cognitive Function Orientation: Person, Place Memory: Intact Attention: WNL Concentration: WNL Association: Loose Fund of Knowledge: WNL Decription of patient's judgement and insights: impaired - Mood Mood: Anxious - Affect Affect: Flat - Speech Speech: Soft - Formal Thought Process Formal Thought Process: Paranoia, Loosening of associations, Circumstantial ( tangential), Other (talking to self, staring) - Homicidal Ideation Homicidal Ideation: No Goal/Treatment Plan - Goal/Treatment Plan Need for Continued Stay: Remain at risks for inpatient hospitalization, Discharge may exacerbated symptoms Progress Toward Problem(s) and Goals/Treatment Plan: inpt adm/milieu therapy vital signs and clinical observation per protocol and per clinical status adjust meds per status discharge planning in progress Estimated Date of D/C: 11/15/16 - Smoking Cessation Smoking Cessation Initiated: No Reason for not providing: deferred
--- NOTE | 2016-11-17 20:17 | PCM.PYCHPN ---
Psychiatric Progress Note - Psychiatric Progress Note Patient seen today, length of contact: chart reviewed/case discussed with team Patient Chief Complaint: pt was seen eating with peers, then returning to room to read, reports is beginning to rest better, denies side effects rx. staff report rx adherent Problems Identified/Issues Discussed: alteration in cognition alteration in thought process Medical Problems: per chart Diagnostic Results: per psychiatry per medicine per nursing per social work per recreational therapy DSM 5 Symptoms Update: alteration in mood alteration in thought process Medication Change: No ( ) Medical Record Reviewed: Yes Consults ordered or reviewed: pt being followed by hospitalist Mental Status Examination - Cognitive Function Orientation: Person, Place Memory: Intact Attention: WNL Concentration: WNL Association: Loose Fund of Knowledge: WNL Decription of patient's judgement and insights: impaired - Mood Mood: Anxious - Affect Affect: Flat - Speech Speech: Soft - Formal Thought Process Formal Thought Process: Paranoia, Loosening of associations, Circumstantial ( tangential), Other (talking to self, staring) - Suicidal Ideation Suicidal Ideation: No - Homicidal Ideation Homicidal Ideation: No Goal/Treatment Plan - Goal/Treatment Plan Need for Continued Stay: Remain at risks for inpatient hospitalization, Discharge may exacerbated symptoms Progress Toward Problem(s) and Goals/Treatment Plan: inpt adm/milieu therapy vital signs and clinical observation per protocol and per clinical status adjust meds per status discharge planning in progress Estimated Date of D/C: 11/15/16
--- NOTE | 2016-11-18 11:15 | PCM.PYCHPN ---
Psychiatric Progress Note - Psychiatric Progress Note Patient seen today, length of contact: discussed with team Patient Chief Complaint: i'm okay Problems Identified/Issues Discussed: pt with brighter affect, more visible in the milieu. denies medication side effects. Medication Change: No ( ) Medical Record Reviewed: Yes Mental Status Examination - Cognitive Function Orientation: Person, Place Memory: Intact Attention: WNL Concentration: WNL Association: Loose Fund of Knowledge: WNL Decription of patient's judgement and insights: improving - Mood Mood: Anxious - Affect Affect: Flat - Speech Speech: Soft - Formal Thought Process Formal Thought Process: Paranoia, Loosening of associations, Circumstantial ( tangential), Other (talking to self, staring) Psychotic Thoughts and Behaviors: improving - Suicidal Ideation Suicidal Ideation: No - Homicidal Ideation Homicidal Ideation: No Goal/Treatment Plan - Goal/Treatment Plan Need for Continued Stay: Remain at risks for inpatient hospitalization, Discharge may exacerbated symptoms Progress Toward Problem(s) and Goals/Treatment Plan: schizophrenia, paranoid will continue abilify at 15mg continue ativan family meeting this week hospitalist following refer to [facility] program when symptoms stabilize Estimated Date of D/C: 11/28/16
[2016-11-19] MEDS: Benzocaine/Menthol (Cepacol) Lozenge PO PRN (08:59)
--- NOTE | 2016-11-19 13:18 | PCM.PYCHPN ---
Psychiatric Progress Note - Psychiatric Progress Note Patient seen today, length of contact: discussed with team Patient Chief Complaint: i'm fine Problems Identified/Issues Discussed: pt continues to make small improvements. she is allowing family to groom her hair today. uri symptoms are resolving. no c/o se with abilify. Medication Change: No ( ) Medical Record Reviewed: Yes Mental Status Examination - Cognitive Function Orientation: Person, Place Memory: Intact Attention: WNL Concentration: WNL Association: Loose Fund of Knowledge: WNL Decription of patient's judgement and insights: improving - Mood Mood: Anxious - Affect Affect: Flat - Speech Speech: Soft - Formal Thought Process Formal Thought Process: Paranoia, Loosening of associations, Circumstantial ( tangential) Psychotic Thoughts and Behaviors: improving - Suicidal Ideation Suicidal Ideation: No - Homicidal Ideation Homicidal Ideation: No Goal/Treatment Plan - Goal/Treatment Plan Need for Continued Stay: Remain at risks for inpatient hospitalization, Discharge may exacerbated symptoms Progress Toward Problem(s) and Goals/Treatment Plan: schizophrenia, paranoid will continue abilify at 15mg continue ativan family meeting this week to help facilitate adherence to discharge hospitalist following [facility] when symptoms stabilize Estimated Date of D/C: 11/28/16
--- NOTE | 2016-11-20 15:18 | PCM.PYCHPN ---
Psychiatric Progress Note - Psychiatric Progress Note Patient seen today, length of contact: discussed with team Patient Chief Complaint: i'm okay Problems Identified/Issues Discussed: pt still internally preoccupied, but more organized in terms of thoughts. no c/ o se with abilify. Medication Change: No ( ) Medical Record Reviewed: Yes Mental Status Examination - Cognitive Function Orientation: Person, Place Memory: Intact Attention: WNL Concentration: WNL Association: Loose Fund of Knowledge: WNL Decription of patient's judgement and insights: improving - Mood Mood: Anxious - Affect Affect: Flat - Speech Speech: Soft - Formal Thought Process Formal Thought Process: Paranoia, Loosening of associations, Circumstantial ( tangential) Psychotic Thoughts and Behaviors: improving - Suicidal Ideation Suicidal Ideation: No - Homicidal Ideation Homicidal Ideation: No Goal/Treatment Plan - Goal/Treatment Plan Need for Continued Stay: Remain at risks for inpatient hospitalization, Discharge may exacerbated symptoms Progress Toward Problem(s) and Goals/Treatment Plan: schizophrenia, paranoid will continue abilify at 15mg continue ativan family meeting being organized this week to help facilitate adherence to discharge hospitalist following refer to [facility] program when symptoms stabilize Estimated Date of D/C: 11/28/16
[2016-11-21] MEDS: Benzocaine/Menthol (Cepacol) Lozenge PO PRN (08:59)
--- NOTE | 2016-11-21 10:22 | PCM.PYCHPN ---
Psychiatric Progress Note - Psychiatric Progress Note Patient seen today, length of contact: discussed with team Patient Chief Complaint: i'm fine Problems Identified/Issues Discussed: pt refused night meds last night. no evidence of eps. she is more alert and visible in the milieu. she is eating her meals. at times she is agreeable to following up after she is hospitalized with outpt treatment. Medication Change: No ( ) Medical Record Reviewed: Yes Mental Status Examination - Cognitive Function Orientation: Person, Place Memory: Intact Attention: WNL Concentration: WNL Association: Loose Fund of Knowledge: WNL Decription of patient's judgement and insights: improving - Mood Mood: Anxious - Affect Affect: Constricted (affect is brighter) - Speech Speech: Soft - Formal Thought Process Formal Thought Process: Paranoia, Loosening of associations Psychotic Thoughts and Behaviors: improving - Suicidal Ideation Suicidal Ideation: No - Homicidal Ideation Homicidal Ideation: No Goal/Treatment Plan - Goal/Treatment Plan Need for Continued Stay: Remain at risks for inpatient hospitalization, Discharge may exacerbated symptoms Progress Toward Problem(s) and Goals/Treatment Plan: schizophrenia, paranoid will continue abilify at 15mg continue ativan have discontinue cogentin and doxepin family meeting being organized this weekend to help facilitate adherence to discharge may start abilify maintaina this weekend also hospitalist following refer to [facility] when symptoms stabilize Estimated Date of D/C: 11/28/16
--- NOTE | 2016-11-22 11:35 | PCM.PYCHPN ---
Psychiatric Progress Note - Psychiatric Progress Note Patient seen today, length of contact: discussed with team Patient Chief Complaint: i'm doing ok Problems Identified/Issues Discussed: pt isolates in her room at times, but also is coming out for meals and in day room more. she is caring for adls. no c/o side effects with abilify. Medication Change: Yes (inc. abilify to 20mg) Medical Record Reviewed: Yes Mental Status Examination - Cognitive Function Orientation: Person, Place Memory: Intact Attention: WNL Concentration: WNL Association: Loose Fund of Knowledge: WNL Decription of patient's judgement and insights: improving - Mood Mood: Anxious - Affect Affect: Constricted (affect is brighter) - Speech Speech: Soft - Formal Thought Process Formal Thought Process: Paranoia, Loosening of associations Psychotic Thoughts and Behaviors: improving - Suicidal Ideation Suicidal Ideation: No - Homicidal Ideation Homicidal Ideation: No Goal/Treatment Plan - Goal/Treatment Plan Need for Continued Stay: Remain at risks for inpatient hospitalization, Discharge may exacerbated symptoms Progress Toward Problem(s) and Goals/Treatment Plan: schizophrenia, paranoid will continue abilify and incrase to 20mg continue [facility] family meeting being organized this weekend to help facilitate adherence to discharge may start abilify maintaina this weekend also hospitalist following refer to [facility] when symptoms stabilize Estimated Date of D/C: 11/28/16
--- NOTE | 2016-11-23 08:59 | PCM.PYCHPN ---
Psychiatric Progress Note - Psychiatric Progress Note Patient seen today, length of contact: discussed with team Patient Chief Complaint: pt still minimises her psychosis and is very disorganized with poor insight and blames everything on others.pt is compliant with meds and no side effects to meds . DSM 5 Symptoms Update: schizoaffective disorder Medication Change: Yes (inc. abilify to 20mg) Medical Record Reviewed: Yes Mental Status Examination - Cognitive Function Orientation: Person, Place Memory: Intact Attention: WNL Concentration: WNL Association: Loose Fund of Knowledge: WNL - Mood Mood: Anxious - Affect Affect: Constricted (affect is brighter) - Speech Speech: Soft - Formal Thought Process Formal Thought Process: Paranoia, Loosening of associations - Suicidal Ideation Suicidal Ideation: No - Homicidal Ideation Homicidal Ideation: No Goal/Treatment Plan - Goal/Treatment Plan Need for Continued Stay: Remain at risks for inpatient hospitalization, Discharge may exacerbated symptoms Progress Toward Problem(s) and Goals/Treatment Plan: will continue to titrate abilify to stabilize the pt and engage pt in therapy. Estimated Date of D/C: 11/28/16
--- NOTE | 2016-11-24 15:33 | PCM.PYCHPN ---
Psychiatric Progress Note - Psychiatric Progress Note Patient seen today, length of contact: discussed with team Patient Chief Complaint: pt still minimises her psychosis and is very disorganized with poor insight and blames everything on others.pt is compliant with meds and no side effects to meds . Medication Change: Yes (inc. abilify to 20mg) Medical Record Reviewed: Yes Mental Status Examination - Cognitive Function Orientation: Person, Place Memory: Intact Attention: WNL Concentration: WNL Association: Loose Fund of Knowledge: WNL - Mood Mood: Anxious - Affect Affect: Constricted (affect is brighter) - Speech Speech: Soft - Formal Thought Process Formal Thought Process: Paranoia, Loosening of associations - Suicidal Ideation Suicidal Ideation: No - Homicidal Ideation Homicidal Ideation: No Goal/Treatment Plan - Goal/Treatment Plan Need for Continued Stay: Remain at risks for inpatient hospitalization, Discharge may exacerbated symptoms Progress Toward Problem(s) and Goals/Treatment Plan: will continue to titrate abilify to stabilize the pt and engage pt in therapy. disposition plans as per [place] Estimated Date of D/C: 11/28/16
--- NOTE | 2016-11-25 15:25 | PCM.PYCHPN ---
Psychiatric Progress Note - Psychiatric Progress Note Patient seen today, length of contact: with social staff worker and pt's sister, brother, father Patient Chief Complaint: i don't like you or your program Problems Identified/Issues Discussed: pt refusing to take abilify maintaina. she is stating she does not want to be in the hospital. she will not follow up with aftercare except to see her outpatient medical doctor. she is irritable, paranoid and internally preoccupied. pt has signed a 48 hour notice Medication Change: No Medical Record Reviewed: Yes Mental Status Examination - Cognitive Function Orientation: Person, Place Memory: Intact Attention: WNL Concentration: WNL Association: Loose Fund of Knowledge: WNL Decription of patient's judgement and insights: poor i/j - Mood Mood: Anxious - Affect Affect: Constricted (affect is brighter) - Speech Speech: Soft - Formal Thought Process Formal Thought Process: Paranoia, Loosening of associations - Suicidal Ideation Suicidal Ideation: No - Homicidal Ideation Homicidal Ideation: No Goal/Treatment Plan - Goal/Treatment Plan Need for Continued Stay: Remain at risks for inpatient hospitalization, Discharge may exacerbated symptoms Progress Toward Problem(s) and Goals/Treatment Plan: schizophrenia, paranoid will continue abilify at 20mg daily screen for involuntary hospitalization as pt is still psychotic, paranoid and is high risk for rehospitalization and continued unstable behaviors in the community. hospitalist following Estimated Date of D/C: 11/28/16
--- NOTE | 2016-11-26 14:15 | PCM.PYCHPN ---
Psychiatric Progress Note - Psychiatric Progress Note Patient seen today, length of contact: discussed with team Patient Chief Complaint: i have done my time Problems Identified/Issues Discussed: pt refusing to take abilify maintaina. she has signed a 48 hour notice. has expressed anger towards staff and family and states she will not take meds nor will she follow up with treatment after discharge. pt's family is concerned with her ability to function at home and in the community. pt is isolating in room and not participating in groups. Medication Change: No Medical Record Reviewed: Yes Mental Status Examination - Cognitive Function Orientation: Person, Place Memory: Intact Attention: WNL Concentration: WNL Association: Loose Fund of Knowledge: WNL Decription of patient's judgement and insights: poor i/j - Mood Mood: Anxious, Other (irritable) - Affect Affect: Constricted - Speech Speech: Soft Additional comments: speaks with accent that is not present when pt less psychotic - Formal Thought Process Formal Thought Process: Paranoia, Loosening of associations - Suicidal Ideation Suicidal Ideation: No - Homicidal Ideation Homicidal Ideation: No Goal/Treatment Plan - Goal/Treatment Plan Need for Continued Stay: Remain at risks for inpatient hospitalization, Discharge may exacerbated symptoms Progress Toward Problem(s) and Goals/Treatment Plan: schizophrenia, paranoid will continue abilify at 20mg daily screen for involuntary hospitalization as pt is still psychotic, paranoid and is high risk for rehospitalization and continued unstable behaviors in the community. she has not done will with over a month of hospitalization- risperdal/invega and abilify not fully controlling psychosis. hospitalist following Estimated Date of D/C: 11/28/16
[2016-11-26 17:20] LABS: BASO # 0.1 K/uL (0.0-0.2); EOS # 0.4 K/uL (0.0-0.7); HEMOGLOBIN 13.1 g/dL (12.0-16.0); LYMPH # 1.8 K/uL (1.0-4.3); LYMPH % 26.5 % (20.0-40.0); MEAN CELL VOLUME 90.6 fl (81.0-99.0); MEAN CORPUSCULAR HEMOGLOBIN 29.7 pg (27.0-31.0); MEAN CORPUSCULAR HGB CONC 32.8 g/dL (33.0-37.0); MEAN PLATELET VOLUME 8.7 fl (7.2-11.7); MONO # 0.5 K/uL (0.0-0.8); MONO % 6.8 % (0.0-10.0); NEUT # 4.2 K/uL (1.8-7.0); NEUT % 59.7 % (50.0-75.0); RBC 4.42 Mil/uL (3.80-5.20); RED CELL DISTRIBUTION WIDTH 13.8 % (11.5-14.5); WHITE BLOOD COUNT 6.9 K/uL (4.8-10.8)
[2016-11-26 18:00] LABS: ALB/GLOB RATIO 1.5 (1.0-2.1); ALBUMIN 4.2 g/dL (3.5-5.0); ALT/SGPT 40 U/L (9-52); AST/SGOT 22 U/L (14-36); BLOOD UREA NITROGEN 16 mg/dl (7-17); GFR AFRICAN-AMERICAN > 60; GFR NON-AFRICAN AMERICAN > 60
[2016-11-26 18:31] LABS: HCG,QUALITATIVE URINE NEGATIVE (NEGATIVE)
[2016-11-26 18:33] LABS: SQUAMOUS EPITHIAL 1 /hpf (0-5); URINE BILIRUBIN NEGATIVE (NEGATIVE); URINE BLOOD LARGE (NEGATIVE); URINE CLARITY SLIGHTY-CLOUDY (Clear); URINE COLOR YELLOW (YELLOW); URINE GLUCOSE (UA) NEG (Normal); URINE LEUKOCYTE ESTERASE TRACE Leu/uL (Negative); URINE NITRATE NEGATIVE (NEGATIVE); URINE PROTEIN NEGATIVE (NEGATIVE); URINE UROBILINOGEN 0.2-1.0 mg/dL (0.2-1.0)
--- NOTE | 2016-11-27 14:05 | PCM.PYCHPN ---
Psychiatric Progress Note - Psychiatric Progress Note Patient seen today, length of contact: discussed with team Patient Chief Complaint: go away Problems Identified/Issues Discussed: pt has been screened and accepted at [facility] [place]. she is isolating in room. she takes meds as prescribed. Medication Change: No Medical Record Reviewed: Yes Mental Status Examination - Cognitive Function Orientation: Person, Place Memory: Intact Attention: WNL Concentration: WNL Association: Loose Fund of Knowledge: WNL Decription of patient's judgement and insights: poor i/j - Mood Mood: Anxious, Other (irritable) - Affect Affect: Constricted - Speech Speech: Soft - Formal Thought Process Formal Thought Process: Paranoia, Loosening of associations - Suicidal Ideation Suicidal Ideation: No - Homicidal Ideation Homicidal Ideation: No Goal/Treatment Plan - Goal/Treatment Plan Need for Continued Stay: Remain at risks for inpatient hospitalization, Discharge may exacerbated symptoms Progress Toward Problem(s) and Goals/Treatment Plan: schizophrenia, paranoid will continue abilify at 20mg daily transfer to [facility] [place] when bed available Estimated Date of D/C: 11/28/16
--- NOTE | 2016-11-28 11:21 | PCM.PYCHPN ---
Psychiatric Progress Note - Psychiatric Progress Note Patient seen today, length of contact: discussed with team Patient Chief Complaint: no response Problems Identified/Issues Discussed: pt has been screened and [place] at [facility] [place] she is isolating in room. decreased appetite. not sleeping well at night. remains paranoid and irritable. Medication Change: Yes (add seroquel at hs) Medical Record Reviewed: Yes Mental Status Examination - Cognitive Function Orientation: Person, Place Memory: Intact Attention: WNL Concentration: WNL Association: Loose Fund of Knowledge: WNL Decription of patient's judgement and insights: poor i/j - Mood Mood: Anxious, Other (irritable) - Affect Affect: Constricted - Speech Speech: Soft - Formal Thought Process Formal Thought Process: Paranoia, Loosening of associations - Suicidal Ideation Suicidal Ideation: No - Homicidal Ideation Homicidal Ideation: No Goal/Treatment Plan - Goal/Treatment Plan Need for Continued Stay: Remain at risks for inpatient hospitalization, Discharge may exacerbated symptoms Progress Toward Problem(s) and Goals/Treatment Plan: schizophrenia, paranoid will continue abilify at 20mg daily dc ativan start seorquel to help with sleep/psychosis [place] [facility] [place] Estimated Date of D/C: 11/28/16
--- NOTE | 2016-11-29 12:16 | PCM.PYCHPN ---
Psychiatric Progress Note - Psychiatric Progress Note Patient seen today, length of contact: discussed with team Patient Chief Complaint: no response Problems Identified/Issues Discussed: pt awaiting bed at [facility] [place]. she slept better last night. remains reclusive, internally preoccupied and irritated with treatment providers. she minimizes/ denies need for treatment. Medication Change: No ( ) Medical Record Reviewed: Yes Mental Status Examination - Cognitive Function Orientation: Person, Place Memory: Intact Attention: WNL Concentration: WNL Association: Loose Fund of Knowledge: WNL Decription of patient's judgement and insights: poor i/j - Mood Mood: Anxious, Other (irritable) - Affect Affect: Constricted - Speech Speech: Soft - Formal Thought Process Formal Thought Process: Paranoia, Loosening of associations - Suicidal Ideation Suicidal Ideation: No - Homicidal Ideation Homicidal Ideation: No Goal/Treatment Plan - Goal/Treatment Plan Need for Continued Stay: Remain at risks for inpatient hospitalization, Discharge may exacerbated symptoms Progress Toward Problem(s) and Goals/Treatment Plan: schizophrenia, paranoid will continue abilify at 20mg daily continue seorquel to help with sleep/psychosis [place] [facility] [place] Estimated Date of D/C: 11/28/16
--- NOTE | 2016-11-30 10:18 | PCM.PYCHPN ---
Psychiatric Progress Note - Psychiatric Progress Note Patient seen today, length of contact: Patient evaluated, case discussed with team, chart reviewed, 35 min Patient Chief Complaint: "Can you run more tests?" Problems Identified/Issues Discussed: Patient was disorganized on interview. She seems to have poor insight into her level of disorganization. She denied AH/VH. Pending transfer to [facility] [place] when bed becomes available. Medication Change: Yes (Increase Seroquel to 50 mg PO HS) Medical Record Reviewed: Yes Mental Status Examination - Cognitive Function Orientation: Person, Place Memory: Intact Association: Loose Decription of patient's judgement and insights: Poor I/J - Mood Mood: Neutral, Other - Affect Affect: Constricted - Speech Speech: Soft - Formal Thought Process Formal Thought Process: Paranoia, Loosening of associations, Flight of ideas, Other (Disorganized) Psychotic Thoughts and Behaviors: Gross disorganization, non-linear speech - Suicidal Ideation Suicidal Ideation: No - Homicidal Ideation Homicidal Ideation: No Goal/Treatment Plan - Goal/Treatment Plan Need for Continued Stay: Remain at risks for inpatient hospitalization, Discharge may exacerbated symptoms Progress Toward Problem(s) and Goals/Treatment Plan: Schizophrenia, paranoid; Patient continues to be psychotic/acutely disorganized. -Continue Abilify at 20mg daily -Increase Seroquel to 50 mg PO HS to help with sleep/psychosis -Transfer [place] [facility] [place] when [place] available Estimated Date of D/C: 12/02/16
--- NOTE | 2016-12-01 10:16 | PCM.PYCHPN ---
Psychiatric Progress Note - Psychiatric Progress Note Patient seen today, length of contact: Patient evaluated, case discussed with team, chart reviewed Patient Chief Complaint: "I'm okay" Problems Identified/Issues Discussed: Pending bed for transfer to [facility] [place]. Patient was disorganized on interview. She seems to have poor insight into her level of disorganization. She denied AH/ VH. Medication Change: No Medical Record Reviewed: Yes Mental Status Examination - Cognitive Function Orientation: Person, Place Memory: Intact Association: Loose Decription of patient's judgement and insights: Poor I/J - Mood Mood: Neutral, Other - Affect Affect: Constricted - Speech Speech: Soft - Formal Thought Process Formal Thought Process: Paranoia, Loosening of associations, Flight of ideas, Other (Disorganized) Psychotic Thoughts and Behaviors: Gross disorganization, non-linear speech - Suicidal Ideation Suicidal Ideation: No - Homicidal Ideation Homicidal Ideation: No Goal/Treatment Plan - Goal/Treatment Plan Need for Continued Stay: Remain at risks for inpatient hospitalization, Discharge may exacerbated symptoms Progress Toward Problem(s) and Goals/Treatment Plan: Schizophrenia, paranoid; Patient continues to be psychotic/acutely disorganized. -Continue Abilify at 20mg daily -Continue Seroquel 50 mg PO HS to help with sleep/psychosis -[place] [facility] [facility] [place] Estimated Date of D/C: 12/02/16
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
[2016-12-02 20:33] VITALS: O2SAT 99
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
--- NOTE | 2016-12-04 13:01 | PCM.PYCHPN ---
Psychiatric Progress Note - Psychiatric Progress Note Patient seen today, length of contact: discussed with team Patient Chief Complaint: no c/o Problems Identified/Issues Discussed: pt awaiting bed at [facility] [place]. remains focused on back pain. she is guarded with providers Medication Change: No ( ) Medical Record Reviewed: Yes Mental Status Examination - Cognitive Function Orientation: Person, Place Memory: Intact Attention: WNL Concentration: WNL Association: Loose Fund of Knowledge: WNL Decription of patient's judgement and insights: poor i/j - Mood Mood: Neutral, Other - Affect Affect: Constricted - Speech Speech: Soft - Formal Thought Process Formal Thought Process: Paranoia, Loosening of associations, Flight of ideas, Other (Disorganized) Psychotic Thoughts and Behaviors: internally preoccupied - Suicidal Ideation Suicidal Ideation: No - Homicidal Ideation Homicidal Ideation: No Goal/Treatment Plan - Goal/Treatment Plan Need for Continued Stay: Remain at risks for inpatient hospitalization, Discharge may exacerbated symptoms Progress Toward Problem(s) and Goals/Treatment Plan: schizophrenia, paranoid continue current treatment continue seorquel to help with sleep/psychosis transfer to [facility] [place] when bed available Estimated Date of D/C: 12/02/16
[2016-12-05 09:10] VITALS: BP 114/70; PULSE 89; RESP 18; TEMP 98.5
--- NOTE | 2016-12-05 13:46 | PCM.PYCHPN ---
Psychiatric Progress Note - Psychiatric Progress Note Patient seen today, length of contact: discussed with team Patient Chief Complaint: no c/o Problems Identified/Issues Discussed: pt awaiting bed at [facility] [place]. remains guarded and denying she has problems with her thoughts/mood. focused on medical issues Medication Change: No ( ) Medical Record Reviewed: Yes Mental Status Examination - Cognitive Function Orientation: Person, Place Memory: Intact Attention: WNL Concentration: WNL Association: Loose Fund of Knowledge: WNL Decription of patient's judgement and insights: poor i/j - Mood Mood: Neutral, Other - Affect Affect: Constricted - Speech Speech: Soft - Formal Thought Process Formal Thought Process: Paranoia, Loosening of associations, Flight of ideas, Other (Disorganized) Psychotic Thoughts and Behaviors: internally preoccupied - Suicidal Ideation Suicidal Ideation: No - Homicidal Ideation Homicidal Ideation: No Goal/Treatment Plan - Goal/Treatment Plan Need for Continued Stay: Remain at risks for inpatient hospitalization, Discharge may exacerbated symptoms Progress Toward Problem(s) and Goals/Treatment Plan: schizophrenia, paranoid continue current treatment continue seorquel to help with sleep/psychosis transfer to [facility] [place] when bed available Estimated Date of D/C: 12/02/16
== END 2016-12-05 22:15 | DRG 430 ==
LOC: H.ER 23:45 → H.EROBSV 10-23 03:56 → H.ERHOLD 10-23 11:53 → OBSVTOIN 10-23 11:53 → H.PSYCH 10-23 13:22
PROVIDERS: ADMIT Psychiatry & Neurology Psychiatry; ATTEND Psychiatry & Neurology Psychiatry
PROC: GZHZZZZ Group Psychotherapy (ICD-10-PCS; principal; 2016-10-23)
PROC: GZ58ZZZ Individual Psychotherapy, Cognitive-Behavioral (ICD-10-PCS; 2016-10-23)
DX: F20.0 Paranoid schizophrenia (principal); G47.00 Insomnia, unspecified; Z78.1 Physical restraint status; K08.89 Other specified disorders of teeth and supporting structures; Z75.1 Person awaiting admission to adequate facility elsewhere